=== PATIENT | female | born 1940 | race Caucasian/White ===

== ENCOUNTER 2016-10-25 09:39 | Day surgery (SDC) | payer MEDICARE ==
[2016-10-25] VITALS (13 sets, daily range): BP systolic 131–189; BP diastolic 47–88; PULSE 69–113; RESP 14–24; O2SAT 91–100
[~2016-10-25] VITALS: Ht 167.6 cm; Wt 76.8 kg
[2016-10-25] MEDS: Lactated Ringer's 1,000 ML IV SCH ×3 (05:00→12:52)
[2016-10-25] MEDS: CeFAZolin Inj 2 GM in IV Premix 1 EACH IV SCH ×2 (06:00→13:10)
[~2016-10-25 09:39] MED LIST: ASPI-973 PO; BENZ-12 PO; CALC1TAB4 PO; ESTR1PAT94 TD; FLUO10CA20 PO; GLPZ5T PO; LEVO75TA4 PO; LOPE1TAB13 PO; LOSA100T3 PO; PANT40TA3 PO; RISP1TAB3 PO; SIMV40TA5 PO; ZOLP5TAB6 PO
[2016-10-25] MEDS ORDERED: fentaNYL-PF 50 mCg/mL 2 mL Inj ONE (09:40)
[2016-10-25] MEDS ORDERED: Rocuronium 10 mg/mL 5 mL Inj ONE (09:40)
[2016-10-25] MEDS ORDERED: Dexamethasone 4 mg/mL Inj ONE (09:40)
[2016-10-25] MEDS ORDERED: Propofol 10,000 mCg/mL 20 mL Inj ONE (09:40)
[2016-10-25] MEDS ORDERED: Ondansetron 2 mg/mL 2 mL Inj ONE (09:40)
[2016-10-25] MEDS ORDERED: Phenylephrine/NS 100 mCg/mL 10 mL Syringe IVPUSH ONE (09:40)
[2016-10-25] MEDS ORDERED: Insulin LISPRO 300 Unit/3 mL Inj ONE (11:34)
[2016-10-25] MEDS ORDERED: Bupivacaine-MPF 0.5% W/EPI 30 mL Inj INFILTRATE ONE (13:22)
--- NOTE | 2016-10-25 13:29 | DRSVH ---
PROCEDURE: NM SENTINEL NODE INJECTION ONLY, RIGHT BREAST RADIOPHARMACEUTICAL: 0.53 mCi Millipore filtered Tc-99m sulfur colloid. INDICATIONS: right breast cancer PROCEDURE: The indications, alternatives, benefits, risks, and complications of the procedure were explained to the patient. Written informed consent was obtained and placed in the chart. The area around the nip ple was prepped and draped in a sterile fashion. Tc-99m sulfur colloid was injected in the outer edg e of the areola in the right breast. No image was obtained. IMPRESSION: Administration of radiotracer into the right breast periareolar region for intra-operati ve sentinel lymph node localization. Dictated by: Ynes Black MD, PhD on 10/25/2016 at 13:28 Approved by: Ynes Black MD, PhD on 10/25/2016 at 13:28
--- NOTE | 2016-10-25 13:30 | DRSVH ---
PROCEDURE: NM SENTINEL NODE INJECTION ONLY, LEFT BREAST RADIOPHARMACEUTICAL: 0.51 mCi Millipore filtered Tc-99m sulfur colloid. INDICATIONS: BREAST CANCER PROCEDURE: The indications, alternatives, benefits, risks, and complications of the procedure were explained to the patient. Written informed consent was obtained and placed in the chart. The area around the nip ple was prepped and draped in a sterile fashion. Tc-99m sulfur colloid was injected in the outer edg e of the areola in the left breast. No image was obtained. IMPRESSION: Administration of radiotracer into the left breast periareolar region for intra-operativ e sentinel lymph node localization. Dictated by: Ynes Black MD, PhD on 10/25/2016 at 13:28 Approved by: Ynes Black MD, PhD on 10/25/2016 at 13:28
[2016-10-25] MEDS ORDERED: Lactated Ringer's 500 ML IV PRN (14:54)
[2016-10-25] MEDS ORDERED: Lactated Ringer's 1,000 ML IV SCH (14:54)
--- NOTE | 2016-10-25 14:54 | PCM.HPANE ---
Patient Data Surgeon Admitting Provider: Attending Provider:Art Kamara MD Primary Care Physician:Randi Webb MD Other Provider:Carolina Mataingham Anesthesia Reason for Visit Right Breast Cancer, Left Breast Dcis Ht/WT & BMI Height (Feet): 5 Height (Inches): 6 Weight (Kilograms): 77.56 Body Mass Index 27.00 Allergies Coded Allergies: amlodipine (Verified Allergy, Unknown, rash, 04/06/16) lisinopril (Verified Allergy, Unknown, cough, 04/06/16) metformin (Verified Adverse Reaction, Severe, Diarrhea, 04/06/16) per h&p Past Anesthesia History Anesthesia History: Denies:: Abnormal Airway, Anesthesia Reactions, Difficult Intubation, Fam Anesthesia Reaction (daughter had issue post brain surgery), Fam Malignant Hypertherm, Malignant Hyperthermia Diabetes History Hx Diabetes?: Yes (Hgb A1C 7.4- 10/13/16) Type of Diabetes: Type II Glycemic Control: Oral Medication MRSA MRSA: No Medications Blood Thinner: Aspirin Hypertension Medication: Yes Home Meds Incl Beta Darryl: No Reported Medications Aspirin 81 Mg Yvxtty09 Mg PO DAILY Ref 0 10/24/16 Benzonatate (Tessalon Perle)100 Mg Srhpgev182 Mg PO TID PRN For Cough 04/05/16 Loperamide/Simethicone (Imodium Multi-Symptom Rel Cplt)1 Each Tablet1 Each PO DIRECTED PRN For Diarrhea or Loose Stool 04/05/16 Simvastatin 40 Mg Zqzvtz05 Mg PO HS 30 Days Ref 0 03/26/15 Risperidone 1 Mg Tablet1 Mg PO DAILY 30 Days Ref 0 03/26/[address] 40 Mg Tablet.dr40 Mg PO DAILY 30 Days Ref 0 03/26/15 Levothyroxine 75 Mcg Rvgzzm66 Mcg PO DAILY 30 Days Ref 0 03/26/15 Glipizide 5 Mg Tablet5 Mg PO BID 30 Days 03/26/15 Fluoxetine 10 Mg Accfcni78 Mg PO DAILY PRN depression 30 Days Ref 0 03/26/15 Estradiol 1 Each Patch.tdsw1 Each TD BID 03/26/15 Ca/D3/Mag#11/Zinc/Team Primary Care Physician/Adrian/Bor (Caltrate 600+D Plus Tablet)1 Each Tablet1 Each PO DAILY 03/26/15 Losartan Potassium (Cozaar)100 Mg Nbztmi350 Mg PO 04/18/14 Zolpidem 5 Mg Xzytmd83 Mg PO HS PRN For Insomnia 04/18/14 Discontinued Reported Medications Aspirin (Aspir 81)81 Mg Tablet.dr81 Mg PO DAILY Ref 0 holding until sx per Anh 03/26/15 Hydrocodone-Acetaminophen 5-325 mg 1 Each Tablet1 Tablet PO Q4H PRN For Pain Ref 0 04/05/16 History History of ENT Problems?: No HEENT History: Denies:: Abnormal Airway Cataracts Difficult Intubation Dysphagia Glaucoma Hearing Problem Hx of Heart Problems?: Yes Cardiovascular History: Positive for:: Hypertension Denies:: AICD Atrial Fibrillation Chest Pain Congestive Heart Failure Coronary Artery Disease Edema Heart Murmur Irregular Heartbeat Pacemaker Peripheral Vascular Valvular Heart Disease Hx of Respiratory Problem?: No Respiratory History: Denies:: Asthma COPD Cough Hemoptysis Oxygen Administration Pneumonia Tuberculosis Use of C-PAP Machine Hx Neurologic Problems?: No Neurological History: Denies:: CVA Dementia Headaches Multiple Sclerosis Parkinson's Disease Seizures TIA Hx of GI Problems?: Yes Gastrointestinal History: Positive for:: Diverticulitis Gall Bladder Disease (removed) Gastroesphageal Reflux Heartburn Denies:: Cirrhosis Hiatal Hernia Liver Disease Rectal Bleeding Hx of Problems?: No Genitourinary History: Denies:: Kidney Stones Urinary Tract Infection Female Hx: Positive for:: Problems with Breasts? (current admission problem) Denies:: Currently (hysterectom) Skin History: Denies:: History Skin Disorders? (rosacea) Pressure Ulcers Hx Musculoskeletal Problems?: Yes Musculoskeletal History: Positive for:: Osteoarthritis Denies:: Back Injury Fibromyalgia Joint Replacement Musculoskeletal Trauma Myasthenia Gravis Hx of Psycho/Social Problems?: No Psycho Social History: Denies:: Anxiety Bipolar Disorder Hx Depression Suicide Attempt Hx Surgeries?: Yes (HYSTERECTOMY , GALL BLADDER) Hx Any Other Health Problems?: Yes Other History: Positive for:: Cancer (breast cancer- current admission problem ) Hospitalization (for mental health) Thyroid Disease Denies:: Endocrine Disease History Blood Transfusions: Positive for:: Accept Blood Products? Denies:: Blood Transfuse Reaction Blood Transfusions Hx Diabetes: Yes (Hgb A1C 7.4- 10/13/16) Hx Alcohol Use: NoHx Substance Use: No Smoking Status: Never Smoker Have You Smoked inLast 12 mo: No Stop/Bang S-Snoring: Do You Snore Loudly: No T-Tired: feel tired, fatigued: No O-Obsered: Observed not breath: No P-Blood Pressure: treated: Yes B- Body Mass Index > 35 kg/m2: No A- Age over 50: Yes N- Neck Large Circumference: No G- Gender Male: No MEGHAN Total Score: 2 Risk Assessment Category Category 1A: Patient has history of documented sleep apnea, and HAS NOT received any narcotic, sedative or anesthesia administration during this stay. Category 1B: Patient has history of documented sleep apnea, and HAS received any narcotic , sedative or anesthesia administration during this stay Category 2: Patient has SUSPECTED Obstructive Sleep Apnea, and HAS received any narcotic , sedative or anesthesia administration during this stay. Category 3: Patient has SUSPECTED Obstructive Sleep Apnea and HAS NOT received narcotic, sedative or anesthesia administration during this stay. Category 4: Outpatient in Procedural Areas with known sleep apnea or who screen positive for High Risk via the STOP/BANG questionnaire. Exam Exam General Appearance: Alert, Oriented X3, Cooperative, No Acute Distress HEENT/AIRWAY: MP 2 Lungs: Clear to Auscultation Heart: Exam Unremarkable Plan Impression Patient chart reviewed, patient interviewed and anesthestic plan with risks, benefits, and alternatives discussed, and informed consent obtained. ASA Physical Status: ASA2 Mod Systemic Disease Anesthetic Plan: GA Bene/Risks/Altern/Consents: Yes HP Complete Prior to Induction: Yes Cirilo Boles MD Oct 25, 2016 07:47
[2016-10-25] MEDS ORDERED: Dexamethasone 4 mg/mL Inj IVPUSH PRN (14:55)
[2016-10-25] MEDS ORDERED: Phenylephrine 10,000 mCg/mL Inj IVPUSH PRN (14:55)
[2016-10-25] MEDS ORDERED: EPHEDrine Sulfate 50 mg/mL Inj IVPUSH PRN (14:55)
[2016-10-25] MEDS ORDERED: MetoCLOpramide 5 mg/mL 2 mL Inj IVPUSH PRN ×2 (14:55→15:55)
[2016-10-25] MEDS ORDERED: Ondansetron 2 mg/mL 2 mL Inj IVPUSH PRN ×2 (14:55→15:55)
[2016-10-25] MEDS ORDERED: Dextrose 5% Lactated Ringer's 1,000 ML IV SCH (15:53)
[2016-10-25] MEDS ORDERED: Glucose 40% Oral Gel 15 Gm Tube PO PRN (15:55)
[2016-10-25] MEDS ORDERED: Acetaminophen IV 1,000 MG in IV Premix 1 EACH IV PRN (15:55)
[2016-10-25] MEDS ORDERED: Morphine PCA 1 mg/mL 30 mL Inj IV PRN (15:55)
--- NOTE | 2016-10-25 16:11 | PCM.SURGOP ---
Surgical Operative Report Date of Service: Oct 25, 2016 Pre Operative Diagnosis Right breast invasive lobular carcinoma, left breast ductal carcinoma in situ Post Operative Diagnosis Same Procedure: Bilateral simple mastectomy, bilateral axillary sentinel lymph node biopsy Surgeon and Email Developer: Surgeon: Art Kamara MD Assistants: Ivette Joyner PA-C; Nilo Madsen MS3 Indication for Procedure 76-year-old woman who was originally diagnosed with left breast DCIS. Breast MRI that showed a 7 mm mass in the right breast, and biopsy of that lesion demonstrated invasive lobular carcinoma. Additionally, in the left breast, there was an area of clumped enhancement without an ultrasound correlate, so 6 month follow-up MRI was recommended. After discussion of her options, the initial plan was for her to have breast conserving surgery bilaterally. She also has a strong family history of breast cancer, but testing for BRCA was negative. After further discussion with Dr. Cortez, bilateral mastectomy was recommended with bilateral axillary sentinel lymph node biopsy. She was not interested in breast reconstruction. After discussion of risks and benefits, she agreed to proceed. Findings: There was a single sentinel lymph node on each side. On the right, the sentinel node had an ex vivo gamma count of 252, with a background of 3. On the left, the sentinel node had an ex vivo gamma count of 1003, with a background of 12. Procedure Details Preoperatively, the patient underwent bilateral radiotracer injection for sentinel node identification. She was brought to the operating room, where she underwent smooth induction of general anesthesia with LMA. She was placed in the supine position with both arms out, and was prepped and draped in wide sterile fashion. There was an excellent radiotracer signal in each axilla, so methylene blue dye was not utilized. An elliptical incision was made on the right breast, encompassing the nipple areolar complex. Skin flaps were raised superiorly and inferiorly. Circumferential dissection was carried out as the skin flaps were raised off the underlying breast capsule. Margins of dissection were the right clavicle, the midline, the right inframammary crease, and the right anterior axillary line. She had some degree of pectus excavatum. The right breast was elevated off the underlying pectoralis muscle. Pectoralis fascia was resected en bloc. Medial and lateral perforating vessels were controlled with hemoclips. The right axillary tail was divided with electrocautery. The right breast was oriented with suture, and passed off the field for permanent pathology. The axillary fascia was incised on the right with electrocautery. Using the gamma probe as a guide, the area of maximum radiotracer activity was identified and dissected free. This corresponded to a single sentinel lymph node, which was soft by palpation, and not enlarged. The right axillary sentinel lymph node was dissected free from the surrounding tissue. The ex vivo gamma count was 252 , compared to a background count of 3. That was sent for permanent pathology. There was a small amount of excess flank tissue which was dissected free sharply , and sent for permanent pathology. A 19 British round WALT drain was brought out through a separate incision laterally, and secured to the skin with a 2-0 nylon stitch. The skin incision was closed with interrupted deep dermal 3-0 Vicryl suture, and a running 4-0 Vicryl subcuticular stitch. An elliptical incision was made on the left breast, encompassing the nipple areolar complex. Skin flaps were raised superiorly and inferiorly. Circumferential dissection was carried out as the skin flaps were raised off the underlying breast capsule. Margins of dissection were the left clavicle, the midline, the left inframammary crease, and the left anterior axillary line. The left breast was elevated off the underlying pectoralis muscle. Pectoralis fascia was resected en bloc. Medial and lateral perforating vessels were controlled with hemoclips. The left axillary tail was divided with electrocautery. The left breast was oriented with suture, and passed off the field for permanent pathology. The axillary fascia was incised on the left with electrocautery. Using the gamma probe as a guide, the area of maximum radiotracer activity was identified and dissected free. This corresponded to a single sentinel lymph node, which was soft by palpation, and not enlarged. The left axillary sentinel lymph node was dissected free from the surrounding tissue. The ex vivo gamma count was 1003, compared to a background count of 12. That was sent for permanent pathology. There was a small amount of excess flank tissue which was dissected free sharply, and sent for permanent pathology. A 19 British round WALT drain was brought out through a separate incision laterally, and secured to the skin with a 2-0 nylon stitch. The skin incision was closed with interrupted deep dermal 3-0 Vicryl suture, and a running 4-0 Vicryl subcuticular stitch. Steri-Strips and sterile dressings were applied. At the end of the case all needle and sponge counts were correct 2. The patient was awakened from anesthesia without difficulty, and taken to the recovery room in satisfactory condition, having tolerated the procedure well. Complications There were no periprocedural complications identified. Surgical Specimen Removed: Yes Specimen sent to Pathology: Yes Surgical Specimen description: Right breast. Right axillary sentinel lymph node. Right flank tissue. Left breast. Left axillary sentinel lymph node. Left flank tissue. Anesthetic Plan: GA Grafts, Implants: None Output, Estimated Blood Loss: 30 Blood Administration during kuhn: No Drains: WALT Drain #1, WALT Drain #2 Catheters: None copies to: Jose Manuel Oneill MD; Cesar Robles MD, Joshua D MD Oct 25, 2016 16:10
[2016-10-25] MEDS: fentaNYL-PF 50 mCg/mL 2 mL Inj IVPUSH PRN ×4 (16:18→17:04)
[2016-10-25] MEDS: HYDROmorphone 1 mg/mL Inj IVPUSH PRN ×4 (16:19→17:04)
--- NOTE | 2016-10-25 16:29 | PCM.ANEP1 ---
Post Anesthesia Phase 1 PACU Phase 1 Assessment Date of Service: Oct 25, 2016 Vital Signs Vital Signs Date Time Temp Pulse Resp B/P Pulse Ox O2 Delivery O2 Flow Rate FiO2 10/25/16 16:15 104 18 189/73 98 Simple Mask 8 10/25/16 16:09 36.8 113 17 176/75 98 Simple Mask 8 10/25/16 10:35 36.4 69 16 140/60 97 Room Air Anesthetic Administered: GA Level of Alertness: Awake, talking RAMIREZ's with Equal Strength: Yes Pain: No Nausea or Vomiting: No Oxygen Delivery: Simple Mask Lungs: Clear to Auscultation Dermatome Level: Full Sensation Cirilo Boles MD Oct 25, 2016 16:29
--- NOTE | 2016-10-25 16:30 | PCM.ANEP2 ---
Post Anesthesia Evaluation ASA/CMS Post Anesthesia VS in Patient's Normal Range?: Yes Resp Stable; Airway Patent?: Yes CV Function & Hydration Stable: Yes Mental Status Recovered?: Yes Pain control Satisfactory?: Yes N/V Control Satisfactory?: Yes Cirilo Boles MD Oct 25, 2016 16:29
[2016-10-25] MEDS: Insulin LISPRO 300 Unit/3 mL Inj SUBQ SCH ×2 (17:30→21:57)
[2016-10-25] MEDS ORDERED: Lactated Ringer's 1,000 ML IV ONE (18:40)
--- NOTE | 2016-10-25 19:52 | NUR ---
Post Op Pt arrived to [facility] unit, room 1022, from PACU at 1855. Arrived via bed. A&Ox3, RAMIREZ, VSS - placed on 2L NC d/t sats 89-91%, HARNESS INSTALLER Morphine started prior to coming to floor, IV patent to Right Foot, No CPOx available at this time - will place per HARNESS INSTALLER protocol. Bilateral WALT drains patent, Dressing across chest from Bilat Mastectomy CDI. Pt oriented to room and call light. Daughters present at bedside. Pt eating ice chips. NOC RN aware.
[2016-10-26 00:24] VITALS: BP 144/69; PULSE 75; RESP 16; O2SAT 96
[2016-10-26 03:57] VITALS: BP 155/70; PULSE 83; RESP 16; O2SAT 95
[2016-10-26 04:07] VITALS: RESP 16; O2SAT 96
[2016-10-26] MEDS ORDERED: 0.9% Sodium Chloride 250 ML ONE (04:10)
--- NOTE | 2016-10-26 04:30 | NUR ---
pain/activity pt is on a BUSINESS DIRECTOR morphine and has reported her pain at a 4/10 and tolerable all night. she has gotten up and walked to the bathroom she is a 1 person contact assist. she feels a little unsteady on her feet and needs either a person or walker to steady her. pt complained of being a "little more sore" this AM after walking to the bathroom she was given IV tylenol and stated it was helpful. nurse has monitored for chest wall hematomas. bilateral drains had equal output of 50cc each. pt has been weaned off 02 and is now on RA, continuous pulse ox is on. care continues
[2016-10-26 04:56] LABS: APPEARANCE,URINE CLEAR (CLEAR,HAZY); COLOR,URINE YELLOW (YELLOW); OCCULT BLOOD,URINE TRACE (NEGATIVE); PH,URINE 6.5 (5.0-8.0); UROBILINOGEN,URINE NORMAL (NORMAL)
[2016-10-26 05:58] VITALS: RESP 16; O2SAT 95
[2016-10-26 06:06] LABS: Mean Corpuscular Hemoglobin 30.8 pg (27.0-35.0); Mean Corpuscular Volume 93.1 fL (81-100)
[2016-10-26] MEDS ORDERED: HYDROcodone-APAP 5-325 mg Tablet PO PRN (07:15)
--- NOTE | 2016-10-26 07:17 | PCM.DISURG ---
Surgical Discharge Instruction Date of Service Oct 26, 2016 Dates of Hospitalization Date of Hospital Admission Providers Admitting Physician: Primary Care Physician: Jose Manuel Oneill MD Attending Physician: Art Kamara MD Discharge Diagnosis Discharge Diagnosis bilateral breast cancer Post Operative diagnosis Same Diet Discharge Diet: Diabetic Activity Discharge Activity-General: Activity as pain allows Dressing and Incisional Care Dressing Care: Allow Steri Stripes to fall off Hygiene: May shower Additional Instructions Discharge Instructions Empty WALT drains daily or more frequently as needed, and record output. Strip WALT drains hourly while awake. Follow Up Plan Follow Up Plan With Arabella RN when WALT drain output is less than 30mL in 24 hours for 2 consecutive days, and the drains can be removed at that time. Follow up with Dr. Kamara in 3 weeks. Call your provider for: Fever (over 101.5F), Discharge @ incision, pus discharge Art Kamara MD Oct 26, 2016 07:17
[2016-10-26 08:18] VITALS: BP 154/73; PULSE 75; RESP 17; O2SAT 94
--- NOTE | 2016-10-26 08:19 | PROG NOTE ---
[address] [address] PROGRESS NOTE PATIENT: EVANGELISTA MUÑOZ : 1940 MR#: [id number] ADMIT: 10/25/2016 JOB ID: [id number] DATE: 10/26/2016 SUBJECTIVE: The patient is seen in followup. She had a decent night although did not get much sleep. She is fairly comfortable but has little more pain on the left than the right. She has no nausea. She feels slightly unsteady on her feet. OBJECTIVE: Temperature 36.8, pulse 83, blood pressure 155/70, saturation 95% on room air. In general, she is resting in bed in no acute distress. Chest is clear. Heart: Regular rate and rhythm. No murmurs. Breasts: Bilateral mastectomy incisions are well approximated. There are no hematomas. There is no erythema of the skin. WALT drains have serosanguineous output, 50 cc from each side overnight. LABORATORIES: White count is 9.8, hematocrit 33.5, creatinine 0.74, glucose 211. ASSESSMENT AND PLAN: A 76-year-old woman with bilateral breast cancer, postoperative day one, status post bilateral simple mastectomy, and bilateral axillary sentinel lymph node biopsy. She is doing well clinically. The CHARACTER IMPERSONATOR will be discontinued this morning. She will be put on an oral pain medication. The nurses will teach her how to take care of the drains. If she does okay with those things and is more steady on her feet, she can go home today. She will follow up in surgery clinic for drain removal when WALT drain output is less than 30 cc in a 24 hour period, and will follow up with me in three weeks.
[2016-10-26] MEDS: Insulin LISPRO 300 Unit/3 mL Inj SUBQ SCH (09:45)
--- NOTE | 2016-10-26 11:09 | NUR ---
Discharge patient discharged home with daughter accompanied by nursing staff via wheel chair. denies pain or discomfort before discharge. stable vitals signs. Reviewed discharge paperwork, discharge medications, WALT drain teaching, sign and symptoms of infection at the surgical site, care noted provided for WALT drain care and mastectomy, patient understood discharge instructions and signed discharge paper work. WALT drain out put 80cc. blood sugar this AM 164.
--- NOTE | 2016-10-26 11:33 | PCM.DC.SUR ---
Discharge Summary Date of Service: Date of Hospital Admission: 10/25/2016 Date of Operation(s): 10/25/2016 Date of Discharge: Oct 26, 2016 at 11:10 Diagnosis at Time of Discharge Primary diagnosis: Malignant neoplasm of upper inner quadrant of the right breast. Ductal carcinoma in situ of left breast Other diagnoses: Diabetes mellitus, type II Pradhan esophagitis Gastritis Hypertension Colon polyps Schizoaffective disorder Thyroid disease Problems: Operation Bilateral simple mastectomy, bilateral axillary sentinel lymph node biopsy by Dr. Art Kamara. Brief History and Physical: 76-year-old woman who was originally diagnosed with left breast DCIS. Breast MRI that showed a 7 mm mass in the right breast, and biopsy of that lesion demonstrated invasive lobular carcinoma. Additionally, in the left breast, there was an area of clumped enhancement without an ultrasound correlate, so 6 month follow-up MRI was recommended. After discussion of her options, the initial plan was for her to have breast conserving surgery bilaterally. She also has a strong family history of breast cancer, but testing for BRCA was negative. After further discussion with Dr. Cortez, bilateral mastectomy was recommended with bilateral axillary sentinel lymph node biopsy. She was not interested in breast reconstruction. After discussion of risks and benefits, she agreed to proceed. Consultants: None. Hospital Course: The patient was taken to the operating room by Dr. Art Kamara on 10/25/2016 where she underwent the above procedure. The patient tolerated the procedure well and there were no intraoperative complications. On her first postsurgical day the patient was seen by Dr. Art Kamara: SUBJECTIVE: The patient is seen in followup. She had a decent night although did not get much sleep. She is fairly comfortable but has little more pain on the left than the right. She has no nausea. She feels slightly unsteady on her feet. OBJECTIVE: Temperature 36.8, pulse 83, blood pressure 155/70, saturation 95% on room air. In general, she is resting in bed in no acute distress. Chest is clear. Heart: Regular rate and rhythm. No murmurs. Breasts: Bilateral mastectomy incisions are well approximated. There are no hematomas. There is no erythema of the skin. WALT drains have serosanguineous output, 50 cc from each side overnight. LABORATORIES: White count is 9.8, hematocrit 33.5, creatinine 0.74, glucose 211. ASSESSMENT AND PLAN: A 76-year-old woman with bilateral breast cancer, postoperative day one, status post bilateral simple mastectomy, and bilateral axillary sentinel lymph node biopsy. She is doing well clinically. The GLAZE GRINDER will be discontinued this morning. She will be put on an oral pain medication. The nurses will teach her how to take care of the drains. If she does okay with those things and is more steady on her feet, she can go home today. She will follow up in surgery clinic for drain removal when WALT drain output is less than 30 cc in a 24 hour period, and will follow up with me in three weeks. Pathology: Pending at time of discharge. Disposition: The patient was discharged home with pain well-controlled on oral analgesics. Per nursing notes a time at discharge: patient discharged home with daughter accompanied by nursing staff via wheel chair. denies pain or discomfort before discharge. stable vitals signs. Reviewed discharge paperwork, discharge medications, WALT drain teaching, sign and symptoms of infection at the surgical site, care noted provided for WALT drain care and mastectomy, patient understood discharge instructions and signed discharge paper work. WALT drain out put 80cc. blood sugar this AM 164. Follow-up Plan: Follow-up with Dr. Art Kamara in the [facility] outpatient general surgery clinic in 3 weeks. She will follow up at the [facility] outpatient general surgery clinic for drain removal when output is less than 30 mL in a 24-hour period. Aspirin (Aspirin) 81 Mg Tablet 81 MG PO DAILY (Reported) Benzonatate (Tessalon Perle) 100 Mg Capsule 100 MG PO TID PRN PRN For Cough ( Reported) Ca/D3/Mag#11/Zinc/Fabric [employer] Textile Factory Worker/Adrian/Bor (Caltrate 600+D Plus Tablet) 1 Each Tablet 1 EACH PO DAILY (Reported) Estradiol (Estradiol) 1 Each Patch.tdsw 1 EACH TD BID (Reported) Fluoxetine (Fluoxetine) 10 Mg Capsule 10 MG PO DAILY PRN PRN depression ( Reported) Glipizide (Glipizide) 5 Mg Tablet 5 MG PO BID (Reported) Levothyroxine (Levothyroxine) 75 Mcg Tablet 75 MCG PO DAILY (Reported) Loperamide/Simethicone (Imodium Multi-Symptom Rel Cplt) 1 Each Tablet 1 EACH PO DIRECTED PRN PRN For Diarrhea or Loose Stool (Reported) Losartan Potassium (Cozaar) 100 Mg Tablet 100 MG PO (Reported) Pantoprazole DR (Pantoprazole DR) 40 Mg Tablet.dr 40 MG PO DAILY (Reported) Risperidone (Risperidone) 1 Mg Tablet 1 MG PO DAILY (Reported) Simvastatin (Simvastatin) 40 Mg Tablet 40 MG PO HS (Reported) Zolpidem (Zolpidem) 5 Mg Tablet 10 MG PO HS PRN PRN For Insomnia (Reported) copies to: Jose Manuel Oneill MD, Danielle B PA-C Oct 26, 2016 11:33
--- NOTE | 2016-10-26 11:52 | NUR ---
Social Work Discharge and Initial Assessment: SW met with patient at bedside to discuss discharge plan. Patient is a 76 year old female admitted under [facility] for right breast cancer and left breast DCIS. Patient payer as [employer]. Patient PCp as [facility]. Patient oncologist at [facility]. Patient resides in [facility] alone but daughter Katie, to reside with patient to provide care and support. [facility]. Patient has previous HHC history in past. Patient has no SNF or DME history. Patient has AD on file. Patient states having no retirement disability nor VA benefits. Patient states being independent with needs and has no identified discharge needs at this time. SW to follow. PLAN: Home alone. Patient daughter to provide support and care and transport home. No anticipated discharge needs. Tomy SIERRA Addendum: 10/26/16 at 1155 by YULIET RIVERA Amended: Links added.
--- NOTE | 2016-11-01 20:55 | PATH ---
SURGICAL PATHOLOGY Attending Physician:Chichi Novak CASE STATUS: Signed Out PATIENT NAME: EVANGELISTA MUÑOZ PID: [id number] : 1940 DATE COLLECTED:10/25/2016 23:21 SPECIMEN: 1: Breast, Simple Mastectomy (lymph nodes submitted separately) 2: [place] Lymph Node 3: Skin, biopsy 4: Breast, Simple Mastectomy (lymph nodes submitted separately) 5: [place] Lymph Node 6: Skin, biopsy CLINICAL HISTORY: RIGHT BREAST CANCER, LEFT BREAST DUCTAL CARCINOMA IN SITU 1). RIGHT BREAST, SHORT STITCH SUPERIOR, LONG STITCH LATERAL (OUT 14:05, FORMALIN 16:15) 2). RIGHT AXILLARY SENTINEL LYMPH NODE 3). RIGHT FLANK TISSUE 4). LEFT BREAST, SHORT SUPERIOR, LONG STITCH LATERAL (OUT 14:54, FORMALIN 16:15) 5). LEFT AXILLARY SENTINEL LYMPH NODE (OUT 15:00, FORMALIN 15:04) 6). LEFT FLANK TISSUE (OUT 15:06, FORMALIN 15:07) FINAL DIAGNOSIS: 1. Right Breast, Mastectomy: Invasive lobular carcinoma with the following features: PROCEDURE: Total mastectomy. LYMPH NODE SAMPLING: [place] lymph node. SPECIMEN LATERALITY: Right TUMOR SITE: 3 o'clock TUMOR SIZE: Greatest dimension of largest focus of invasion: 5 mm. HISTOLOGIC TYPE: Invasive lobular carcinoma. HISTOLOGIC GRADE: VENKATESH HISTOLOGIC SCORE Glandular/Tubular differentiation: Score 3 Nuclear Pleomorphism: Score 2 Mitotic Rate: Score 1 Overall Grade: Grade 2 TUMOR FOCALITY: Single focus of invasive carcinoma. DUCTAL CARCINOMA IN SITU: No DCIS is present. MACROSCOPIC AND MICROSCOPIC EXTENT OF TUMOR SKIN: Not involved. NIPPLE: Not involved. SKELETAL MUSCLE: Not applicable. MARGINS INVASIVE CARCINOMA: Margins uninvolved by invasive carcinoma. All margins are greater than 1 cm. DUCTAL CARCINOMA IN SITU: Not present. LYMPH NODES Total number of lymph nodes examined: One. Number of sentinel lymph nodes examined: One. Method of Evaluation of [place] Lymph Nodes: H&E, multiple levels and immunohistochemistry. LYMPH-VASCULAR INVASION: Not identified. DERMAL LYMPH-VASCULAR INVASION: Not identified. PATHOLOGIC STAGING (AJCC 7TH EDITION, 2010): PRIMARY TUMOR: pT1a REGIONAL LYMPH NODES: pN0(i-)(sn) ANCILLARY STUDIES: Biomarkers Performed Previously on Case: [id number] Estrogen Receptor (ER) Status: Positive, greater than 95%, strong. Progesterone Receptor (PgR) Status: Positive, 80%, moderate. HER2 (by immunohistochemistry): Negative for overexpression (1+). CLINICAL HISTORY: RADIOLOGIC FINDING: Mass or architectural distortion. 2. Right Axillary [place] Lymph Node: One sentinel lymph node negative for metastatic carcinoma. 3. Right Flank Tissue, Biopsy: Skin and subcutaneous tissue with no evidence of neoplasm. 4. Left Breast, Mastectomy: Ductal carcinoma in situ with the following features: PROCEDURE: Total mastectomy. LYMPH NODE SAMPLING: [place] lymph node and one intramammary lymph node. SPECIMEN LATERALITY: Left. TUMOR SITE: Not specified. SIZE OF DCIS: Estimated size of DCIS: 46 mm. HISTOLOGIC TYPE: Ductal carcinoma in situ. Architectural patterns: Cribriform and solid. Nuclear grade: Grade II (intermediate). Necrosis: Present, focal (small foci or single cell necrosis). MARGINS: Margins uninvolved by DCIS. All margins are greater than 1 cm. LYMPH NODES: Total number of lymph nodes examined (sentinel and non-sentinel): 2. Number of sentinel nodes examined: 1. METHOD OF EVALUATION OF SENTINEL LYMPH NODES: H&E, multiple levels and immunohistochemistry. PATHOLOGIC STAGING (AJCC 7TH EDITION, 2010): PRIMARY TUMOR: pTis. REGIONAL LYMPH NODES: pN0(i-) ANCILLARY STUDIES: Biomarkers Performed Previously on Case: [id number] Estrogen Receptor (ER) Status: Positive, greater than 90%, strong. Progesterone Receptor (PgR) Status: Positive, greater than 90%, strong/intermediate. ADDITIONAL PATHOLOGIC FINDINGS: Fibrocystic-type changes, biopsy site changes, and focal residual papilloma. MICROCALCIFICATIONS: Not identified. CLINICAL HISTORY: Radiologic finding: Clumped enhancement. 5. Left Axillary [place] Lymph Node: One sentinel lymph node negative for metastatic carcinoma. 6. Left Flank Tissue, Biopsy: Skin and subcutaneous tissue with no evidence of neoplasm. ICD: C50.011 GROSS DESCRIPTION: The specimens are received in formalin, labeled with the patient's name, and sublabeled as the following: (1) right breast; (2) right axillary sentinel lymph node; (3) right flank tissue; (4) left breast; (5) left axillary sentinel lymph node; (6) left flank tissue. (1) The specimen consists of a right breast (5.6 cm AP, 22.0 cm SI, 22.5 cm ML) partially covered by an ellipse of skin (12.5 cm SI, 17.5 cm ML) with nipple/areola complex (6.2 x 5.5 cm). The axillary tail is absent. The specimen is oriented with 2 black sutures (short-superior, long-lateral). The specimen is serially sectioned ML into 24 slices with the medial and lateral resection margins as slices #1 and #24 respectively. The breast tissue is fatty and contains a black-white solid firm irregular mass (0.7 x 0.4 x 0.2 cm) within slices #7 and #8. The mass is 2.6 cm from the anterior, 2.5 cm from the posterior, 10.1 cm from the superior, 8.5 cm from the inferior, 3.4 cm from the medial, and the 18.6 cm from the lateral resection margins. No other nodules, masses or lesions are identified. The skin and nipple/areola complex are varghese-white and remarkable. Ink code: purple-anterior; yellow-posterior; black-superior; orange-inferior; green-medial; blue-lateral. Section code: (1A) nipple; (1B) skin; (1C) medial resection margin, perpendicularly sectioned, call center support representative; (1D-1E) slice #6, tissue adjacent to mass, call center support representative bisected and submitted AP; (1F, 1G) slice #7, call center support representative; (1H-1J) slice #8, call center support representative bisected and submitted AP, closest superior margin to mass; (1k) slice #9, tissue adjacent to mass, call center support representative; (1L) slice #11, call center support representative; (1M) slice #14, call center support representative; (1N) slice #16, call center support representative; ( 1O) lateral resection margin, perpendicularly sectioned, call center support representative. Note: Gross consultation with Dr. Jose Elias Mix. (2) The specimen consists of a lymph node (1.1 x 0.8 x 0.5 cm). Section code: (2A) one lymph node, longitudinally sectioned. Specimen entirely submitted. (3) The specimen consists of an unoriented "V" shaped piece of skin with subcutaneous tissue (9.5 x 7.5 x 1.2 cm). The subcutaneous tissue is fatty. The skin is varghese-white and unremarkable. No nodules, masses or lesions are identified. Ink code: black-resection margin. Section code: (3A) skin, serially sectioned, call center support representative. (4) The specimen consists of a left breast (5.5 cm AP, 24.5 cm SI, 19.5 cm ML) partially covered by an ellipse of skin (12.8 cm SI, 19.5 cm ML) with nipple/areola complex (6.5 x 5.5 cm). The axillary tail is absent. The specimen is oriented with 2 black sutures (short-superior, long-lateral). The specimen is serially sectioned ML into 22 slices with the medial and lateral resection margins as slices #1 and #22 respectively. The breast tissue is fatty with no nodules, masses or lesions identified. The skin and nipple/areola complex are varghese-white and remarkable. Ink code: purple-anterior; yellow-posterior; black-superior; orange-inferior; green-medial; blue-lateral. Section code: (4A) nipple; (4B) skin; (4C) medial resection margin, perpendicularly sectioned, call center support representative; (4D) slice #4, call center support representative; (4 H&E) slice #6, call center support representative; (4F) slice #10, call center support representative; (4G) slice #11, call center support representative; (4H) slice #12, call center support representative; (4I) slice #14, call center support representative; (4J) slice #15, call center support representative; (4K) slice #16, call center support representative; (4L) slice #17, call center support representative; (4M) slice #18, call center support representative; (4N) slice #20, call center support representative; (4O) lateral resection margin, perpendicularly sectioned, call center support representative. Additional sections submitted: 4P: section anterior to 4K; 4Q and 4W: sections lateral and medial to 4K; 4R section posterior to 4K; 4S slice 15 adjacent to 4K; 4T-4V biopsy site adjacent to 4W (thinned to three sections); 4X intramammary lymph node slice 21. (5) The specimen consists of a lymph node (0.9 x 0.5 x 0.4 cm). Section code: (5A) one lymph node, serially sectioned. Specimen entirely submitted. (6) The specimen consists of an unoriented "V" shaped piece of skin with subcutaneous tissue (6.2 x 6.0 x 1.7 cm). The subcutaneous tissue is fatty. The skin is varghese-white and unremarkable. No nodules, masses or lesions are identified. Ink code: black-resection margin. Section code: (6A) skin, serially sectioned, call center support representative. Note: Approximate total fixation time in formalin for all specimens-49 hours calculated using a collection date of October 25, 2016 with times in fixative of [id number]. 10/27/16 JM MICRO DESCRIPTION: Immunohistochemical stains for cytokeratin KOLE were performed on the sentinel lymph nodes (block 2A and 5A) and are both negative. Control stains show appropriate reactivity. * This test was developed and its performance characteristics determined by [facility]. It has not been cleared or approved by the U.S. Food and Drug Administration. The FDA has determined that such clearance or approval is not necessary. This test is used for clinical purposes. It should not be regarded as investigational or for research. ICD-9 CODES: CPT CODES: 1: 26371 2: 59572, 15584 3: 92232 4: 95294 5: 07014, 97241 6: 15517 Electronically Signed Out Elicia Louise [facility] Pathology [facility] [address], [place] [address] Technical component performed at [facility], [address], [place], [address]
[2017-02-24] MEDS ORDERED: LOSA100T29 PO (11:54)
== END 2016-10-26 11:10 | disposition home or self-care (01) ==
LOC: SAS 09:39 → OSC 19:06 → SAS 10-26 11:10
PROVIDERS: ATTEND Student in an Organized Health Care Education/Training Program
DX: C50.911 Malignant neoplasm of unspecified site of right female breast (principal); D05.12 Intraductal carcinoma in situ of left breast; I10 Essential (primary) hypertension; E11.9 Type 2 diabetes mellitus without complications; E03.9 Hypothyroidism, unspecified; K22.70 Barrett's esophagus without dysplasia; E78.5 Hyperlipidemia, unspecified; Z79.84 Long term (current) use of oral hypoglycemic drugs; Z79.82 Long term (current) use of aspirin
CPT/HCPCS: 19301; 36415; 38525; 38792; 80048; 81000; 83036; 85027; A9541; J0131; J0690; J1100; J1170; J1815; J2370; J2405; J7050; J7120

== ENCOUNTER 2016-11-20 16:40 | Inpatient (IN) | payer MEDICARE ==
[~2016-11-20] VITALS: Ht 167.6 cm; Wt 72.0 kg
[~2016-11-20 16:40] MED LIST changes: -ASPI-973 PO; -ESTR1PAT94 TD
[2016-11-20 16:45] VITALS: BP_SYST 11; BP_SYST 111; BP_DIAS 62; PULSE 79; RESP 16; O2SAT 100
--- NOTE | 2016-11-20 17:10 | ED.REPORT ---
HPI-General Illness Date of Service Nov 20, 2016 ED Provider: Dr. Loera Pt is a 76 y/o female w/ a hx of prev bilateral breast CA s/p recent double mastectomy, hypothyroid, HTN, Type 2 DM, presenting to the ED w/ her daughter due to postoperative complications. The patient had a bilateral mastectomy [address] weeks [address] Kamara and now is experiencing left-sided red- colored drainage onset yesterday and erythematous rash which is worsening. She was seen by Dr. Kamara in follow-up 4 days ago and was started on Cephalexin for a left breast abscess which has provided no relief. A wound culture was obtained during that visit and grew staph aureus which is sensitive to all medications except penicillin. Pt denies fever, pain over the site, chills, cough, dysuria, abdominal pain, diaphoresis. Nursing Notes Stated Complaint: RED DISCHARGE AFTER DOUBLE MASTECTOMY Chief Complaint: General Complaint Nursing Notes Reviewed: Yes Allergies: Coded Allergies: amlodipine (Verified Allergy, Unknown, rash, 04/06/16) lisinopril (Verified Allergy, Unknown, cough, 04/06/16) metformin (Verified Adverse Reaction, Severe, Diarrhea, 04/06/16) per h&p Scheduled Ca/D3/Mag#11/Zinc/Technical [employer]/Adrian/Bor (Caltrate 600+D Plus Tablet) 1 Each Tablet 1 EACH PO DAILY Cephalexin (Cephalexin) 500 Mg Capsule 500 MG PO TID Glipizide (Glipizide) 5 Mg Tablet 5 MG PO BID Levothyroxine (Levothyroxine) 75 Mcg Tablet 75 MCG PO DAILY Losartan Potassium (Losartan Potassium) 50 Mg Tablet 50 MG PO DAILY Pantoprazole DR (Pantoprazole DR) 40 Mg Tablet.dr 40 MG PO DAILY Risperidone (Risperidone) 1 Mg Tablet 1 MG PO DAILY Simvastatin (Simvastatin) 40 Mg Tablet 40 MG PO HS Scheduled PRN Fluoxetine (Fluoxetine) 10 Mg Capsule 10 MG PO DAILY PRN PRN depression Loperamide/Simethicone (Imodium Multi-Symptom Rel Cplt) 1 Each Tablet 1 EACH PO DIRECTED PRN PRN For Diarrhea or Loose Stool Zolpidem (Zolpidem) 5 Mg Tablet 10 MG PO HS PRN PRN For Insomnia General Time Seen by MD: 17:10 Chief Complaint Rash Hx Obtained From: Patient, Daughter Arrived By: Walk-in Sudden in Onset?: No Onset Occurred: 1 week ago Symptom Duration: Since onset Severity: Current: No pain currently Severity: Maximum: No pain Recent Healthcare: Previous surgery Similar Sx Previous: No Past Medical History Past Medical History Hypothyroid Hypertension Hx diverticulitis GERD Arthritis Pradhan's esophagus Hyperlipidemia Type 2 Diabetes Schizoaffective disorder Hx psychiatric admission Hx bilateral breast cancer s/p double mastectomy Hx colon polyps Past Surgical History Bilateral mastectomy Hysterectomy Cholecystectomy Smoking History Never Smoker Social History Other Social History: Good social support Ambulatory Status Independent Review of Systems + drainage Full Review of Systems Constitutional: Denies: Chills, Fever Respiratory: Denies: Non-productive cough, Shortness of breath Cardiovascular: Denies: Chest pain GI: Denies: Abdominal pain Skin: Reports Rash, Denies Diaphoresis Complete sys rev & neg: except as marked. Physical Exam Vital Signs Vital Signs Date Time Temp Pulse Resp B/P Pulse Ox O2 Delivery O2 Flow Rate FiO2 11/20/16 17:57 117/54 11/20/16 16:45 36.8 79 16 111/62 100 Room Air Initial VS: Reviewed Head / Eyes: Atraumatic, Normocephalic, PERRL ENT: Mucous membranes moist, Conjunctiva normal, No scleral icterus Neck: Supple, Full range of motion Cardiovascular: Regular rate & rhythm, Heart sounds normal, Intact distal pulses Abdomen / GI: Soft, Non-tender Skin: Warm, Dry, No cyanosis Neurologic: Alert, Oriented, Nonfocal Psychiatric: Mood/affect normal, Behavior normal, Normal thought content General/Constitutional: Awake, Alert, No acute distress, Cooperative, Not toxic appearing Respiratory / Chest: Atraumatic, Breath sounds NL, Breath sounds = bilat, No respiratory distress, No rales, No rhonchi, No wheezing, No retractions, No stridor, No chest tenderness, No crepitus Bilateral mastectomy scars which appear to be healing well Left breast laterally there is a large area of erythema from the costal margin up to the axilla. No current drainage from left surgical site Purulent discharge from the right surgical site - culture sent Site of erythema is non-tender Interpretation & Diagnostics Lab Results Interpretation Result Diagram: 11/20/16 1800 11/20/16 1800 Test 11/20/16 18:00 White Blood Count 11.2th/mm3 (3.8-10.1) Red Blood Count 3.19mil/mm3 (3.90-5.20) Hemoglobin 9.7g/dL (12.0-15.6) Hematocrit 29.3% (35.0-46.0) Mean Corpuscular Volume 91.8fL (81-100) Mean Corpuscular Hemoglobin 30.4pg (27.0-35.0) Mean Corpuscular Hemoglobin Concent 33.1% (32.0-37.0) Red Cell Distribution Width 13.0% (12.3-15.4) Platelet Count 426bil/L (150-400) Neutrophils (%) (Auto) 66.3% (40-74) Lymphocytes (%) (Auto) 22.7% (14-46) Monocytes (%) (Auto) 8.5% (4-12) Eosinophils (%) (Auto) 1.7% (0-5) Basophils (%) (Auto) 0.4% (0-3) Prothrombin Time 11.1sec (8.1-12.5) Prothromb Time International Ratio 1.04ratio Sodium Level 132mEq/L (134-144) Potassium Level 4.2mEq/L (3.5-5.2) Chloride Level 93mEq/L (97-108) Carbon Dioxide Level 26mmol/L (18-29) Blood Urea Nitrogen 8mg/dL (8-27) Creatinine 0.57mg/dL (0.57-1.00) Estimat Glomerular Filtration Rate 148mL/min (>59) Glucose Level 91mg/dL (60-99) Lactic Acid Level 1.3mmol/L (0.4-2.0) Calcium Level 8.4mg/dL (8.5-10.1) Magnesium Level 2.0mg/dL (1.6-2.6) Total Bilirubin 0.3mg/dL (0.0-1.2) Aspartate Amino Transf (AST/SGOT) 36U/L (0-50) Alanine Aminotransferase (ALT/SGPT) 36U/L (0-32) Alkaline Phosphatase 73U/L (25-165) Troponin T < 0.010ug/L (0.0-0.011) Total Protein 6.2g/dL (6.4-8.4) Albumin 3.1g/dL (3.4-5.0) Procedures Procedure Notes: Procedure: Left EJ started by MD. Re-Eval/Medical Decision Med Decision/Clinical Course Postop wound infections/abscess, failing outpt abx. Started meropenem and consulted surgery. She will be admitted, to floor in stable condition. Source of Hx: Old records, Family Time of Eval: 18:20 Re-Evaluation/Progress Note: Pt rechecked. Informed pt of need for admission for IV abx and further evaluation. Pt understands and agrees with plan for admission. All questions addressed. Consultation : Referral / Consult Name: Sea Moody MD Consulted With: Surgeon Call Returned at: 17:51 [employer] Manager: Will see patient, Agrees with eval, Agrees with plan, Accepts admit Note: Aspirated 40 cc purulent fluid in the ED. Counseled Regarding: Diagnosis, Lab results, Need for admission Discharge & Departure Primary Impression: Cellulitis of chest wall Disposition: ADMITTED TO HOSPITAL Discharge Condition All VS Reviewed: Yes Condition: Stable Referrals: Jose Manuel Oneill MD (PCP) Art Kamara MD Attestation Portions of this note were transcribed by Milton Avila. I, Dr. Loera personally performed the history, physical exam and medical decision-making; I reviewed and confirmed the accuracy of the information in the transcribed note. Signed by Mercy Gr, 11/20/16 - 8149 copies to: Art Kamara MD; Jose Manuel Oneill MD, Donald L MD Nov 20, 2016 17:10 MILTON AVILA Nov 20, 2016 17:13
[2016-11-20 17:57] VITALS: BP 117/54
[2016-11-20 18:12] LABS: BASOPHILS % (AUTO) 0.4 % (0-3); EOSINOPHILS % (AUTO) 1.7 % (0-5); MONOCYTES % (AUTO) 8.5 % (4-12); Mean Corpuscular Hemoglobin 30.4 pg (27.0-35.0); Mean Corpuscular Volume 91.8 fL (81-100); NEUTROPHILS % (AUTO) 66.3 % (40-74); Platelet Count 426 bil/L (150-400)
[2016-11-20 18:28] LABS: INR 1.04 ratio
[2016-11-20 18:36] LABS: TROPONIN T < 0.010 ug/L (0.0-0.011)
[2016-11-20] MEDS ORDERED: Meropenem Inj 2,000 MG in IV Premix 1 EACH IV ONE (18:45)
[2016-11-20] MEDS ORDERED: diphenhydrAMINE 25 mg Capsule PO PRN (18:50)
[2016-11-20] MEDS ORDERED: Ondansetron 2 mg/mL 2 mL Inj IVPUSH PRN (18:50)
[2016-11-20] MEDS ORDERED: HYDROmorphone 0.5 mg/0.5 mL iSecure Syringe IV PRN (18:50)
[2016-11-20] MEDS ORDERED: CEPH500C PO (18:52)
[2016-11-20] MEDS ORDERED: LOSA50TA37 PO (18:53)
--- NOTE | 2016-11-20 19:50 | NUR ---
Admit ED report received from Rj Clark RN @19:30, arrive now via tech ambulated ind to bed accompanied by 2 dtr. Dx chest wall cellulitis s/p constanza. mastectomy both sites healing slight redness no swelling bandaid on the left s/p bx in ED cx pending.Plan is IV abx while cx pend
[2016-11-20 20:07] VITALS: BP 107/51; PULSE 73; RESP 17; O2SAT 99
[2016-11-20] MEDS: risperiDONE 1 mg Tablet PO SCH (21:00)
--- NOTE | 2016-11-20 21:06 | HP ---
[address] [address] HISTORY AND PHYSICAL PATIENT: EVANGELISTA MUÑOZ : 1940 MR#: [id number] ADMIT: 11/20/2016 JOB ID: [id number] CHIEF COMPLAINT/IDENTIFICATION: A 76-year-old woman with left chest wall infection status post bilateral mastectomy. HISTORY OF PRESENT ILLNESS: The patient underwent bilateral mastectomy with sentinel node biopsy in mid October of this year. This was for DCIS on the left and a T1a invasive lobular carcinoma on the right. She has been seen by Medical Oncology with plans for antiestrogen therapy only. She reports following up with Dr. Kamara in the office. On the right side she had a fair amount of drainage after removal of her Sunny-Huizar drained and recently had a stitch placed. This is described as nonpurulent drainage. Her WALT was removed on the left side and this site closed up. However, last week she was seen in the office with redness of her chest and a fair amount of fluid that was aspirated. This was reportedly purulent, and I am told by Dr. Loera in the emergency department that this has grown out Staph aureus that was methicillin sensitive. She has been on Keflex, but reports increased left chest wall tenderness and redness with some swelling. She has had no drainage on the left. She has had nonpurulent drainage on the right despite having the stitch closing up the drain site. She describes no symptoms suggestive of systemic illness. PAST MEDICAL HISTORY: Hypertension, diabetes, hypothyroidism. MEDICATIONS: 1. Cozaar 100 daily. 2. Glipizide 5 mg daily. 3. Simvastatin 40 mg daily. 4. Levothyroxine 75 mcg daily. 5. Risperidone 1 mg p.o. q.p.m. 6. Ambien q.h.s. p.r.n. 7. Fluoxetine 10 mg daily. ALLERGIES: 1. AMLODIPINE. 2. LISINOPRIL. 3. METFORMIN. SOCIAL HISTORY: She is seen in the emergency department with her daughter. REVIEW OF SYSTEMS: Unchanged from recent history and physical. PHYSICAL EXAMINATION: Pleasant woman in no acute distress. Vital signs recorded in the chart. She is hemodynamically stable. Temperature is 36.8. She does not appear systemically ill. Heart and lungs are unremarkable. Her chest wall is remarkable on the right for no sign of erythema, no tenderness. She does have serous drainage staining her shirt. On the left side she has no drainage but her wound and her incision has healed, but she does have marked blanching erythema and some fluctuance and edema of the chest wall. Under sterile conditions, I have aspirated this area and got out approximately 40 cc of beige-colored purulent material that will be sent for Gram stain and culture. This has essentially evacuated the space. I; therefore, have not made a larger incision and placed a drain. Her abdomen is benign. LABORATORIES: White count is 11.2, hematocrit is 29.3. Chemistries are unremarkable except for mildly low serum sodium. Her creatinine is 0.57, glucose is 91, albumin is 3.1. IMPRESSION AND PLAN: Left chest wall infection status post bilateral mastectomies. She has been on outpatient treatment with aspiration and oral antibiotics that have failed as her cellulitis has gotten worse. I think at this point we have aspirated the cavity dry and will give her intravenous meropenem. If she does not respond to this treatment she may need placement of a Sunny-Huizar drain either in the operating room or at the bedside. We will admit her tonight to the hospital, order all of her usual medications, and she will be re-evaluated in the morning.
[2016-11-21] MEDS ORDERED: 0.9% Sodium Chloride 100 ML ONE ×2 (00:31→16:28)
[2016-11-21] MEDS: Meropenem Inj 1,000 MG in 0.9% Sodium Chloride 50 ML IV SCH ×3 (00:37→16:29)
[2016-11-21 00:48] VITALS: BP 128/69; PULSE 84; RESP 18; O2SAT 96
[2016-11-21 04:56] VITALS: BP 128/70; PULSE 80; RESP 16; O2SAT 96
[2016-11-21 07:38] LABS: BASOPHILS % (AUTO) 0.5 % (0-3); EOSINOPHILS % (AUTO) 2.7 % (0-5); Mean Corpuscular Hemoglobin 30.9 pg (27.0-35.0); NEUTROPHILS % (AUTO) 59.5 % (40-74); Platelet Count 435 bil/L (150-400)
[2016-11-21 08:00] VITALS: BP 131/79; PULSE 73; RESP 20; O2SAT 97
--- NOTE | 2016-11-21 08:54 | PCM.PNSURG ---
Subjective Date of Service: Nov 21, 2016 Visit Information: Reason for Visit Chest Wall Cellulitis Surgery/Surgery Date Post-Op Day # Date of Admission: Nov 20, 2016 at 19:36 Hospital Day # Subjective: Patient is a 76 year old woman s/p BL mastectomy on 10/28/[address] Kamara with subsequent development of left chest wall cellulitis unresponsive to outpatient oral antibiotics and aspiration. Aspirate reportedly grew out MSSA. Patient reports that her left chest infection feels better, less tender and hot compared to prior days and overall she feels much improved. She does reports some lingering mild tenderness to palpation at the afflicted site. Appetite and spirits are good. Postop General: No Complaints, No Shortness of Breath, No Chest Pain, Other Gastrointestinal: Good Appetite, Normal Bowel Movement Pain Management: PO Postop Activity: Ambulating Independently Objective Vital Sign- Last 8 Hours Date Time Temp Pulse Resp B/P Pulse Ox O2 Delivery O2 Flow Rate FiO2 11/21/16 04:56 37.3 80 16 128/70 96 Room Air 11/21/16 00:48 37.3 84 18 128/69 96 Room Air Intake and Output- Last 8 Hour 11/21/16 Cumulative From/Thru 07:00 11/20/16 16:45 - 11/21/16 06:14 Intake Total 410 ml 410 ml Output Total 250 ml 250 ml Balance 160 ml 160 ml Intake Oral 360 ml 360 ml IV Total 50 ml 50 ml Output Urine Total 250 ml 250 ml General: Alert, Oriented X3, Cooperative, No Acute Distress Neck: Supple, Full Range of Motion Chest: Mild erythema on left chest wall superior and lateral to mastectomy incision site. No active drainage, mild tenderness to palpation, underlying tissue surrounding mastectomy incision mildly firm compared to right side. SURGICAL WOUND : Wound Location/Description BL mastectomy incisions appear to be well approximated and healing well Extremities: Distal Pulses Palpable Neuro: Grossly Neurologically Intact Result Diagram: 11/21/16 0712 11/20/16 1800 Assessment & Plan Impression Patient with active but improving left chest wall cellulitis apparently responsive to IV Meropenem. After discussion with Dr. Kamara who performed her mastectomy and given her clinical and laboratory improvement we have elected to continue IV antibiotics and observation at this time. Dr. Kamara will be in tomorrow to evaluate the patient and discuss possible surgical intervention vs. medical management with the patient after another 24 hours of IV antibiotics. Should she elect to proceed with irrigation and drain placement tomorrow we will be available to perform said procedure. Problems: Plan -Continue IV Meropenem -Monitor clinical progress -Re-assess tomorrow and discuss irrigation and drainage vs medical management. -Patient is hemodynamically stable without coagulopathy that would preclude intervention Attending Statement: I personally interviewed and examined the pt, and I agree with Dr. Hagan's assessment and plan. Sea Hagan DO Nov 21, 2016 08:54 Augusto Sanchez MD Nov 24, 2016 09:16
--- NOTE | 2016-11-21 11:07 | NUR ---
Social Work- Initial Assessment: Data: Eloise Núñez is a 76 year old female admitted 11/20/16 for chest wall cellulitis per H&P. Pt's insurance is [employer] and PCP is Jose Manuel Oneill MD. SW met with pt and daughter Katie Allison [phone] at bedside to discuss discharge planning, SW role reviewed. Pt was alert and oriented x3. Pt resides alone in [place] in a senior apartment with an elevator. She is independent at baseline, uses no DME and drives. SW discussed DPOA and verified that the information in EMR is accurate. Put hard copy on chart. DPOA is Katie Allison [phone]. Pt has no senior living care or VA benefits. Pt has no HH or SNF experience. Daughter Katie to transport home at discharge via POV. Per RN notes, pt has been up independent in her room. SW provided phone number and plan on whiteboard in room. No anticipated discharge needs at this time. SW will continue to follow should needs arise. Assessment: Pt who is independent at baseline. Plan: No anticipated discharge needs at this time. Daughter Katie to transport home at discharge via POV. SW will continue to follow should needs arise. MARIELA Mo Addendum: 11/21/16 at 1115 by RAYO DELACRUZ SS Amended: Links added.
--- NOTE | 2016-11-21 12:57 | NUR ---
Drainage from left breast Called to patient room. Mid incision creamy white fluids flowing out. ABD/tape applied, linen and gown changed.
[2016-11-21 17:02] VITALS: BP 155/75; PULSE 84; RESP 20; O2SAT 99
[2016-11-21 17:09] VITALS: BP 150/69
--- NOTE | 2016-11-21 18:21 | NUR ---
blood glucose BS 174. Dr Sanchez made aware. New orders received. Addendum: 11/21/16 at 1833 by NANCY RAMIREZ RN MD also notified of drainage and redness of left breast. MD states high probability of going to the OR tomorrow for a "washout". Pt notified of NPO after midnoc.
[2016-11-21] MEDS: Insulin LISPRO Low-Dose Scale SUBQ PRN (19:02)
[2016-11-21 20:16] VITALS: BP 144/78; PULSE 80; RESP 19; O2SAT 98
[2016-11-21] MEDS: risperiDONE 1 mg Tablet PO SCH (20:21)
[2016-11-22] MEDS: Meropenem Inj 1,000 MG in 0.9% Sodium Chloride 50 ML IV SCH ×3 (00:21→16:46)
[2016-11-22 02:43] VITALS: BP 118/68; PULSE 76; RESP 20; O2SAT 95
--- NOTE | 2016-11-22 02:51 | NUR ---
Activity Pt up OOB with one assist. Compliant with call light. Denies pain. Drsg is dry to touch. Care ongoing
[2016-11-22 07:42] VITALS: BP 127/76; PULSE 84; RESP 20; O2SAT 97
[2016-11-22] MEDS: Insulin LISPRO Low-Dose Scale SUBQ PRN ×3 (07:54→18:15)
--- NOTE | 2016-11-22 08:56 | PROG NOTE ---
[address] [address] PROGRESS NOTE PATIENT: EVANGELISTA MUÑOZ : 1940 MR#: [id number] ADMIT: 11/20/2016 JOB ID: [id number] DATE: 11/22/2016 SUBJECTIVE: The patient is seen in followup. Today, she feels well and is not complaining of any pain in the left breast. She has been afebrile. There has been a scant amount of drainage from the skin and an ABD pad was applied over the site. OBJECTIVE: Temperature 36.9, pulse 84, blood pressure 127/76, saturation 97% on room air. In general, she is resting in bed in no acute distress. Chest is clear. Heart: Regular rate and rhythm. No murmurs. Breasts: The right mastectomy incision is intact and there is no erythema on the right side. The previous WALT drain site has scant serous drainage. On the left side, the incision is intact. In the upper outer quadrant, there is a 3 x 3 cm area of erythema which is significantly improved. There is no palpable fluctuance. She is minimally tender to palpation. LABORATORIES: Gram stain shows many gram-positive cocci and rare polys, sensitivity and identification is pending. ASSESSMENT AND PLAN: A 76-year-old woman with a left breast abscess following bilateral simple mastectomy. Reportedly, the culture from the office shows methicillin sensitive Staph aureus. We will keep her here for one more day for IV antibiotics. For now the plan is not to go back to the operating room, but to continue a non operative approach. I will come back later today with an ultrasound to see if there is any residual fluid that can be aspirated from the left side. If she continues to do well, the plan will be to discharge her to home tomorrow on oral antibiotics. If she decompensates in any way, the plan will be to go to the operating room for incision and drainage and washout of her left mastectomy space.
[2016-11-22 09:52] LABS: BASOPHILS % (AUTO) 0.9 % (0-3); EOSINOPHILS % (AUTO) 4.4 % (0-5); MONOCYTES % (AUTO) 8.7 % (4-12); Mean Corpuscular Volume 91.7 fL (81-100); NEUTROPHILS % (AUTO) 59.2 % (40-74); Platelet Count 443 bil/L (150-400)
--- NOTE | 2016-11-22 10:46 | NUR ---
auto dealership porterprint finisher note: Met with patient and her daughter, Katie. Introduced myself and explain my role as film and video editor. Patient will start Anastrozole once she is medically stable from her Mastectomy. No care needs identified at this time. Will continue to follow and address any care needs as they arise.
[2016-11-22 11:37] VITALS: BP 119/76; PULSE 77; RESP 14; O2SAT 98
--- NOTE | 2016-11-22 14:22 | NUR ---
Mentation patient is alert and oriented X3. Able to make needs known. stable vital signs. Denies pain or discomfort. daughters at bed side. stable blood sugar before lunch 138. room air. last BM this morning per patient. denies shortness of breath or trouble breathing. dressings left mastectomy clean dry and intact. bandage on the right mastectomy clean dry and intact. stable mood. call light with in reach for safety. dressing site clean dry and intact on left jugular IV. will continue to monitor pain and infection bilateral matectomy sites.
--- NOTE | 2016-11-22 15:07 | NUR ---
pain C/o pain to left jugular site 01/09. PRN Ibuprofen given for pain. Left jugular per patient was placed on Monday and has been discomfort since. no sign and symptoms of infection noted at the site. dressing is clean dry and intact. Able to move neck left and right with out any increased difficulty. Afebrile. BP 115/69, pulse 82, Temp 36.7, Oxygen 98%RA. will reassess pain to left jugular site.
[2016-11-22 16:03] VITALS: BP 115/69; PULSE 82; RESP 14; O2SAT 98
[2016-11-22 20:07] VITALS: BP 150/73; PULSE 75; RESP 16; O2SAT 97
[2016-11-22] MEDS ORDERED: risperiDONE 1 mg Tablet PO SCH (21:00)
[2016-11-23] MEDS: Meropenem Inj 1,000 MG in 0.9% Sodium Chloride 50 ML IV SCH ×4 (01:58→10:19)
[2016-11-23 04:47] VITALS: BP 153/78; PULSE 71; RESP 16; O2SAT 99
--- NOTE | 2016-11-23 05:54 | NUR ---
Mentation/ABO/Wound Alert and oriented x 3;makes needs known to staff reg care. Denies general pain, chest pain, shortness of breath, n/v/d, and gi upset. The Pt ambulates independently in room and seems to tolerate the activity well. IV ABO given without noted side effects. Pt stated she slept/rested well. Educated the pt on next time ABO administered and possible discharge later on today. The pt seemed to have an understanding of plan. Dressings to chest are clean/dry/intact. No direct observation at this time. Will continue to monitor for discomfort, increased redness to chest/mastectomy site, and drainage. Care ongoing.
[2016-11-23 06:50] LABS: BASOPHILS % (AUTO) 1.7 % (0-3); EOSINOPHILS % (AUTO) 5.4 % (0-5); MONOCYTES % (AUTO) 10.7 % (4-12); Mean Corpuscular Hemoglobin 30.1 pg (27.0-35.0); Mean Corpuscular Volume 91.9 fL (81-100); NEUTROPHILS % (AUTO) 47.5 % (40-74); Platelet Count 497 bil/L (150-400)
[2016-11-23 08:00] VITALS: BP 136/72
[2016-11-23] MEDS: Insulin LISPRO Low-Dose Scale SUBQ PRN (08:04)
--- NOTE | 2016-11-23 08:44 | PCM.DISURG ---
Surgical Discharge Instruction Date of Service Nov 23, 2016 Dates of Hospitalization Date of Hospital Admission Nov 20, 2016 at 19:36 Providers Admitting Physician: Sea Moody MD Primary Care Physician: Jose Manuel Oneill MD Attending Physician: Sea Moody MD Discharge Diagnosis Discharge Diagnosis left breast abscess, diabetes mellitus type 2, hypertension, left breast cancer Diet Discharge Diet: Diabetic Activity Discharge Activity-General: Other (post-mastectomy exercises daily) Dressing and Incisional Care Dressing Care: Change soiled dressing (daily with dry gauze and tape) Follow Up Plan Follow Up Plan with Dr. Kamara on Monday afternoon Call your provider for: Fever (over 101.5F), Wound redness Art Kamara MD Nov 23, 2016 08:44
[2016-11-23] MEDS ORDERED: CIPR-198 PO (08:45)
--- NOTE | 2016-11-23 09:08 | PROG NOTE ---
[address] [address] PROGRESS NOTE PATIENT: EVANGELISTA MUÑOZ : 1940 MR#: [id number] ADMIT: 11/20/2016 JOB ID: [id number] DATE: 11/23/2016 SUBJECTIVE: The patient is seen in followup. She has no complaints today. She has no pain. OBJECTIVE: Temperature 36.8, pulse 71, blood pressure 153/78, saturation 99% on room air. General: She is resting in bed in no acute distress. Chest is clear. Heart: Regular rate and rhythm. No murmurs. Breasts: The right mastectomy incision is intact with no erythema and no fluctuance. There is no drainage from the prior WALT drain site, and a nylon stitch is intact. On the left side, the erythema has essentially resolved. There is a 2 x 2 cm of residual induration with very faint erythema, no fluctuance. The incision is intact with no drainage. LABORATORIES: White count is 4.6, hematocrit 31.8. Creatinine 0.67, glucose 182. ASSESSMENT AND PLAN: A 76-year-old woman with left breast abscess following bilateral simple mastectomy, with culture growing methicillin-sensitive Staphylococcus aureus. She has responded well to antibiotics. She does not need surgical drainage. The plan will be to discharge her to home today after her last dose of IV antibiotics. She will go home on a 7-day course of oral ciprofloxacin twice daily. She will follow up in the [facility] on Monday of next week for suture removal and reassessment. She will call sooner if she has fevers over 101.5, increasing pain, increasing redness of her chest wall.
[2016-11-23 10:15] VITALS: BP 133/82; PULSE 85; RESP 18; O2SAT 97
--- NOTE | 2016-11-23 12:40 | NUR ---
Social Work Discharge: SW acknowledged order for discharge. SW met with patient at bedside to discuss discharge plan. Patient states residing home alone prior to admit. Patient states plan as home with daughter who to provide transport upon discharge and who to assist with care needs. Patient states being independent with needs and has no identified discharge needs at this time. SW will continue to follow pending further clinical course. PLAN: Home with daughter via POV. No anticipated discharge needs identified at this time. SW will continue to follow pending clinical course. Tomy SIERRA
[2016-11-23] MEDS ORDERED: 0.9% Sodium Chloride 100 ML ONE (12:46)
--- NOTE | 2016-11-23 12:48 | NUR ---
Bm pt states she had a loose still this am. Encouraged pt to monitor while on antibiotics and report increase or continued diarrhea. Discussed risks with antibiotics. Pt verbalized understanding.
--- NOTE | 2016-11-23 13:03 | NUR ---
IV access Clarified with IV therapy that pt has external left jugular access, not an internal jugular, which per iv therapy is a peripheral line that ma be removed by nursing staff.
--- NOTE | 2016-11-23 14:10 | NUR ---
Discharge Pt dc'd in WC with daughter and UA at 1410. Left external jugular IV dc'd w/o complication and dressed with gauze and tegaderm. Left and right chest incisions C/D/I and dressing supplies provided to patient. Reviewed all discharge instructions and pt verbalized understanding. Reinforced wound care and signs/symptoms of infections, diabetic care and educated on when and how to take antibiotic prescribed. All belongings with pt. Notified MD office of pt report of diarrhea this am. Pt to monitor, states she has IBS. Pt to follow up with Dr. Kamara Monday, not Monday. Contact info provided to pt for his clinic.
--- NOTE | 2016-11-24 16:28 | PCM.DC.SUR ---
Discharge Summary Date of Service: Date of Hospital Admission: Nov 20, 2016 at 19:36 Date of Discharge: 11/23/2016 Diagnosis at Time of Discharge Primary diagnosis: 1. Left chest wall infection status post bilateral mastectomies. 2. Right breast T1a invasive lobular carcinoma. 3. Left breast DCIS Other diagnoses: 1. Hypertension 2. diabetes 3. hypothyroidism. Problems: Brief History and Physical: The patient underwent bilateral mastectomy with sentinel node biopsy in mid October of this year. This was for DCIS on the left and a T1a invasive lobular carcinoma on the right. She had been seen by Medical Oncology with plans for antiestrogen therapy only. She reported following up with Dr. Kamara in the office. On the right side she had a fair amount of drainage after removal of her Sunny-Huizar drained and recently had a stitch placed. This was described as nonpurulent drainage. Her WALT was removed on the left side and this site closed up. However, last week she was seen in the office with redness of her chest and a fair amount of fluid that was aspirated and had grown out Staph aureus that was methicillin sensitive. She had been on Keflex, but reported increased left chest wall tenderness and redness with some swelling. She had no drainage on the left. She had nonpurulent drainage on the right despite having the stitch closing up the drain site. She described no symptoms suggestive of systemic illness Consultants: None Hospital Course: The patient was admitted for intravenous antibiotics and monitoring of the left chest wall infection. Symptoms improved by the patient second hospital day. Dr. Kamara ultrasounded the left chest wall and the decision was made for non- interventional treatment, antibiotics only. The patient's symptoms continue to improve. She was stable for discharge on her fourth hospital day on oral antibiotics. Pathology: None Disposition: The patient was discharged to home on her fourth hospital day. Follow-up Plan: She will follow-up in the office with Dr. Kamara in 5 days. Ca/D3/Mag#11/Zinc/Project Hire/Adrian/Bor (Caltrate 600+D Plus Tablet) 1 Each Tablet 1 EACH PO DAILY (Reported) Ciprofloxacin (Ciprofloxacin) 500 Mg Tablet 500 MG PO BID Fluoxetine (Fluoxetine) 10 Mg Capsule 10 MG PO DAILY PRN PRN depression ( Reported) Glipizide (Glipizide) 5 Mg Tablet 5 MG PO BID (Reported) Levothyroxine (Levothyroxine) 75 Mcg Tablet 75 MCG PO DAILY (Reported) Loperamide/Simethicone (Imodium Multi-Symptom Rel Cplt) 1 Each Tablet 1 EACH PO DIRECTED PRN PRN For Diarrhea or Loose Stool (Reported) Losartan Potassium (Losartan Potassium) 50 Mg Tablet 50 MG PO DAILY (Reported) Pantoprazole DR (Pantoprazole DR) 40 Mg Tablet.dr 40 MG PO DAILY (Reported) Risperidone (Risperidone) 1 Mg Tablet 1 MG PO DAILY (Reported) Simvastatin (Simvastatin) 40 Mg Tablet 40 MG PO HS (Reported) Zolpidem (Zolpidem) 5 Mg Tablet 10 MG PO HS PRN PRN For Insomnia (Reported) copies to: Jose Manuel Oneill MD, Fred H PA-C Nov 24, 2016 16:28
[2017-02-24] MEDS ORDERED: LOSA100T29 PO (11:54)
== END 2016-11-23 14:10 | disposition home or self-care (01) | DRG 603 ==
LOC: SED 16:40 → MOC 19:36
PROVIDERS: ADMIT Surgery; ATTEND Surgery
DX: L03.313 Cellulitis of chest wall (principal); L03.319 Cellulitis of trunk, unspecified; Z90.13 Acquired absence of bilateral breasts and nipples; Z85.3 Personal history of malignant neoplasm of breast; Z86.010 Personal history of colon polyps; B95.61 Methicillin susceptible Staphylococcus aureus infection as the cause of diseases classified elsewhere; Y83.6 Removal of other organ (partial) (total) as the cause of abnormal reaction of the patient, or of later complication, without mention of misadventure at the time of the procedure